=== PATIENT | female | born 1990 | race Caucasian/White ===

== ENCOUNTER 2016-11-01 10:51 | Outpatient (CLI) ==
[2016-11-01 11:25] LABS: BASOPHILS % (AUTO) 0.7 % (0.0-3.0); EOSINOPHILS # (AUTO) 0.1 K/ul (0.0-0.7); EOSINOPHILS % (AUTO) 1.4 % (0.0-7.0); HEMATOCRIT 35.5 % (37.0-47.0); HEMOGLOBIN 12.3 g/dl (12.0-16.0); IMMATURE GRANULOCYTE % (AUTO) 0.2 % (0.0-5.0); LYMPHOCYTES # (AUTO) 1.7 K/uL (0.60-3.4); LYMPHOCYTES % (AUTO) 38.7 (10.0-50.0); MEAN CORPUSCULAR HEMOGLOBIN 31.5 pg (27.0-31.0); MEAN CORPUSCULAR HGB CONC 34.6 (31.8-35.4); MONOCYTES # (AUTO) 0.3 K/uL (0.4-2.0); MONOCYTES % (AUTO) 6.7 (0-10); NEUTROPHILS # (AUTO) 2.3 K/ul (2.0-6.9); NEUTROPHILS % (AUTO) 52.3; PLATELET COUNT 187 10^3/uL (140-440); WHITE BLOOD COUNT 4.34 K/ul (4.6-10.2)
[2016-11-01 11:34] LABS: H. PYLORI ANTIBODY NEGATIVE (NEGATIVE); H.PYLORI INTERNAL QC INTERNAL QC VALID
--- NOTE | 2016-11-01 11:34 | DI ---
EXAM: KUB. History: Abdominal pain and constipation. Findings: Nonspecific but nonobstructive bowel gas pattern. Moderate to large amount of colonic st ool. No free intraperitoneal air. No acute osseous abnormalities. Facet hypertrophy within the lo wer lumbar spine. Small nonspecific pelvic calcifications measuring up to 2 mm. 3 mm calcification projecting over the left renal shadow. Impression: 1. Nonspecific but nonobstructive bowel gas pattern. 2. Yyddnfad-gn-[id number] amount colonic stool. 3. Question left nephrolithiasis.
[2016-11-01 11:43] LABS: SERUM PREGNANCY INTERNAL QC INTERNAL QC VALID
[2016-11-01 12:01] LABS: ALBUMIN 4.1 g/dL (3.4-5.0); ALBUMIN/GLOBULIN RATIO 1.58; ANION GAP 12.8; BILIRUBIN,TOTAL 0.99 mg/dL (0.00-1.20); BUN/CREATININE RATIO 20.28; CALCIUM 9.1 mg/dL (8.2-10.2); CREATININE 0.69 mg/dL (0.60-1.30); POTASSIUM 3.8 mmol/L (3.5-5.10); TOTAL PROTEIN 6.7 g/dL (6.4-8.2)
== END 2016-11-01 10:52 | disposition home or self-care (01) ==
LOC: LAB 10:51
PROVIDERS: ATTEND Nurse Practitioner Family
DX: K59.00 Constipation, unspecified (principal); R14.0 Abdominal distension (gaseous); R19.7 Diarrhea, unspecified
CPT/HCPCS: 36415; 80053; 84443; 84703; 85025; 86677

== ENCOUNTER 2016-11-04 16:08 | Outpatient (CLI) ==
[2016-11-04 18:00] LABS: IMMATURE RETIC FRACTION 5.1; RETICULOCYTE % 1.2 %
[2016-11-04 18:54] LABS: FERRITIN 111.48 ng/mL (4.63-204.00); FOLATE 19.6 ng/mL (3.1-20.5)
== END 2016-11-04 16:09 | disposition home or self-care (01) ==
LOC: LAB 16:08
PROVIDERS: ATTEND Nurse Practitioner Family
DX: R71.8 Other abnormality of red blood cells (principal)
CPT/HCPCS: 36415; 82607; 82728; 82746; 83540; 83550; 84466; 85045